=== PATIENT | male | born 1985 | race Caucasian/White ===

== ENCOUNTER 2016-09-04 07:58 | Emergency (ER) | payer MEDICAID ==
[~2016-09-04] VITALS: Ht 175.3 cm; Wt 77.2 kg
[~2016-09-04 07:58] MED LIST: LAMO100T5 PO
[2016-09-04] MEDS ORDERED: LORazepam 2 MG/ML, 1ML IVPush ONE (08:30)
[2016-09-04] MEDS ORDERED: OXYcodone/APAP 5/325MG TABLET PO ONE (08:30)
[2016-09-04] MEDS ORDERED: SODIUM CHLORIDE 0.9% 1,000ML IVBOLUS ONE (08:30)
[2016-09-04] MEDS ORDERED: OXYcodone/APAP 5/325MG TABLET ONE (08:39)
[2016-09-04] MEDS ORDERED: LORazepam 2 MG/ML, 1ML ONE (08:40)
[2016-09-04] MEDS ORDERED: MORPHINE SULFATE 4 MG/ML, 1ML ONE (09:47)
[2016-09-04] MEDS ORDERED: MORPHINE SULFATE 4 MG/ML, 1ML IVPush PRN (10:00)
[2016-09-04 10:21] VITALS: BP 116/63
== END 2016-09-04 10:24 | disposition home or self-care (01) ==
LOC: ED 10:00
DX: R56.9 Unspecified convulsions (principal); S39.012A Strain of muscle, fascia and tendon of lower back, initial encounter; S06.0X1A Concussion with loss of consciousness of 30 minutes or less, initial encounter; X58.XXXA Exposure to other specified factors, initial encounter; Y93.89 Activity, other specified; Y99.8 Other external cause status; Y92.89 Other specified places as the place of occurrence of the external cause
CPT/HCPCS: 70450; 72072; 96361; 96374; 96375; 99284; J2060; J7030

== ENCOUNTER 2016-11-05 22:30 | Inpatient (IN) | payer MEDICAID ==
[~2016-11-05] VITALS: Ht 170.2 cm; Wt 57.0 kg
[2016-11-05] MEDS ORDERED: SODIUM CHLORIDE FLUSH 10ML SYR IVF ONE (23:30)
[2016-11-06] MEDS ORDERED: SODIUM CHLORIDE FLUSH 10ML SYR IVF PRN
[2016-11-06] MEDS ORDERED: LORazepam 2 MG/ML, 1ML IVPush PRN ×2 (00:30→00:31)
[2016-11-06] MEDS ORDERED: HYDROcodone/APAP 5/325 TABLET PO PRN (00:30)
[2016-11-06] MEDS: morphine SULFATE 10 MG/ML, 1ML IVPush PRN ×2 (01:05→01:40)
[2016-11-06 01:18] VITALS: BP 148/86
[2016-11-06] MEDS: ENOXAPARIN 40 MG/0.4 ML SQ SCH (01:34)
[2016-11-06 07:49] VITALS: BP 145/75
[2016-11-06] MEDS ORDERED: LAMOTRIGINE 100 MG TABLET PO SCH (09:00)
[2016-11-06] MEDS ORDERED: ACETAMINOPHEN 500 MG TABLET ONE (09:03)
[2016-11-06] MEDS: ACETAMINOPHEN 500 MG TABLET PO PRN ×3 (09:07→20:31)
[2016-11-06] MEDS: FAMOTIDINE 20 MG TABLET PO SCH ×2 (10:09→20:31)
[2016-11-06 15:19] VITALS: BP 127/82
[2016-11-06 20:46] VITALS: BP 135/73
[2016-11-07 01:15] VITALS: BP 118/70
[2016-11-07] MEDS: ENOXAPARIN 40 MG/0.4 ML SQ SCH (01:17)
[2016-11-07 05:07] LABS: BLOOD UREA NITROGEN 12 mg/dL (7-18)
[2016-11-07 08:00] VITALS: BP 133/93
[2016-11-07] MEDS: FAMOTIDINE 20 MG TABLET PO SCH (09:00)
[2016-11-07 13:48] VITALS: BP 151/82
== END 2016-11-07 15:00 | disposition home or self-care (01) | DRG 101 ==
LOC: ED 23:59 → EDIP 11-06 00:29 → 4WST 11-06 00:58
PROVIDERS: ADMIT Internal Medicine; ATTEND Internal Medicine
DX: G40.409 Other generalized epilepsy and epileptic syndromes, not intractable, without status epilepticus (principal); K30 Functional dyspepsia; S01.81XA Laceration without foreign body of other part of head, initial encounter; X58.XXXA Exposure to other specified factors, initial encounter; Y93.89 Activity, other specified; Z72.820 Sleep deprivation; Z87.891 Personal history of nicotine dependence; Y92.89 Other specified places as the place of occurrence of the external cause; Y99.8 Other external cause status; R03.0 Elevated blood-pressure reading, without diagnosis of hypertension
CPT/HCPCS: 36415; 80048; 95951; 99285; J1650; J2270

== ENCOUNTER 2016-11-09 | Observation (INO) | payer MEDICAID ==
[~2016-11-09] VITALS: Ht 172.7 cm; Wt 75.4 kg
[2016-11-09] MEDS ORDERED: METH500T97 PO (00:14)
[2016-11-09] MEDS ORDERED: SODIUM CHLORIDE 0.9% 1,000ML IVBOLUS ONE (00:30)
[2016-11-09] MEDS ORDERED: SODIUM CHLORIDE FLUSH 10ML SYR IVF ONE (00:30)
[2016-11-09 00:56] LABS: BLOOD UREA NITROGEN 8 mg/dL (7-18)
[2016-11-09] MEDS ORDERED: KETOROLAC 30 MG/1 ML ONE (01:09)
[2016-11-09] MEDS ORDERED: KETOROLAC 30 MG/1 ML IVPush ONE (01:30)
[2016-11-09] MEDS ORDERED: SODIUM CHLORIDE 0.9% 1,000 ML IV SCH (01:52)
[2016-11-09] MEDS ORDERED: ENOXAPARIN 40 MG/0.4 ML SQ SCH (02:00)
[2016-11-09] MEDS ORDERED: BISACODYL 10 MG SUPP PR PRN (02:00)
[2016-11-09] MEDS ORDERED: DOCUSATE 100 MG CAPSULE PO PRN (02:00)
[2016-11-09] MEDS ORDERED: hydrALAzine 20 MG/ML, 1ML IVPush PRN (02:00)
[2016-11-09] MEDS ORDERED: KETOROLAC 30 MG/1 ML IVPush PRN (02:00)
[2016-11-09] MEDS ORDERED: POLYETHYLENE GLYCOL 17 GM PACKET PO PRN (02:00)
[2016-11-09] MEDS ORDERED: ACETAMINOPHEN 325 MG TABLET PO PRN (02:00)
[2016-11-09 03:44] VITALS: BP 126/77
[2016-11-09] MEDS ORDERED: METHOCARBAMOL 500 MG TABLET PO SCH (06:00)
[2016-11-09 07:09] VITALS: BP 118/80
[2016-11-09] MEDS ORDERED: LAMOTRIGINE 100 MG TABLET PO SCH (09:00)
[2016-11-09] MEDS ORDERED: CALCIUM CARBONATE 500 MG TAB.CHEW PO SCH (09:00)
[2016-11-10] MEDS ORDERED: LAMOTRIGINE 100 MG TABLET PO SCH (06:00)
== END 2016-11-09 09:10 | disposition left against medical advice (07) ==
LOC: ED 00:10 → EDIP 01:52 → 4WST 02:54
PROVIDERS: ADMIT Internal Medicine; ATTEND Internal Medicine
DX: G40.909 Epilepsy, unspecified, not intractable, without status epilepticus (principal); F12.10 Cannabis abuse, uncomplicated; F17.200 Nicotine dependence, unspecified, uncomplicated; G89.29 Other chronic pain; Z87.820 Personal history of traumatic brain injury
CPT/HCPCS: 36415; 72050; 80048; 82040; 85025; 93005; 96361; 96372; 96374; 99285; G0378; J1650; J1885; J7030

== ENCOUNTER 2017-01-24 11:20 | Emergency (ER) | payer MEDICAID ==
[~2017-01-24] VITALS: Ht 177.8 cm; Wt 73.5 kg
[~2017-01-24 11:20] MED LIST changes: +METH500T97 PO
[2017-01-24] MEDS ORDERED: LORazepam 2 MG/ML, 1ML IVPush ONE (12:00)
[2017-01-24] MEDS ORDERED: SODIUM CHLORIDE FLUSH 10ML SYR IVF ONE (12:00)
[2017-01-24] MEDS ORDERED: HYDROmorphone 1 MG/ML, 1ML IV ONE (12:00)
[2017-01-24] MEDS ORDERED: ONDANSETRON 2MG/ML, 2ML IVPush ONE (12:00)
[2017-01-24 12:18] LABS: HEMATOCRIT 47.7 % (39.2-51.8); HEMOGLOBIN 16.3 g/dL (13.7-18.0); WHITE BLOOD COUNT 8.8 x10^3/uL (3.4-10)
[2017-01-24 12:28] LABS: BLOOD UREA NITROGEN 9 mg/dL (7-18)
[2017-01-24] MEDS ORDERED: HYDROmorphone 1 MG/ML, 1ML ONE (12:39)
[2017-01-24] MEDS ORDERED: ONDANSETRON 2MG/ML, 2ML ONE (12:40)
[2017-01-24] MEDS ORDERED: LORazepam 2 MG/ML, 1ML ONE (12:40)
[2017-01-24 13:55] VITALS: BP 129/77
== END 2017-01-24 14:02 | disposition home or self-care (01) ==
LOC: ED 11:36
DX: G40.909 Epilepsy, unspecified, not intractable, without status epilepticus (principal)
CPT/HCPCS: 36415; 70450; 72072; 72125; 80048; 82040; 85025; 96374; 96375; 99285; J1170; J2060; J2405

== ENCOUNTER 2017-02-02 06:08 | Emergency (ER) | payer MEDICAID ==
[~2017-02-02] VITALS: Ht 175.3 cm; Wt 75.0 kg
[2017-02-02 06:17] VITALS: BP 142/80
[2017-02-02] MEDS ORDERED: SODIUM CHLORIDE FLUSH 10ML SYR IVF ONE (07:00)
[2017-02-02 07:05] LABS: HEMOGLOBIN 15.8 g/dL (13.7-18.0); WHITE BLOOD COUNT 7.5 x10^3/uL (3.4-10)
[2017-02-02] MEDS ORDERED: IBUPROFEN 200 MG TABLET ONE (07:14)
[2017-02-02 07:15] LABS: ASPARTATE AMINO TRANSFERASE 38 U/L (15-37); BLOOD UREA NITROGEN 15 mg/dL (7-18)
[2017-02-02] MEDS ORDERED: IBUPROFEN 200 MG TABLET PO ONE (07:30)
== END 2017-02-02 08:26 | disposition home or self-care (01) ==
LOC: ED 06:37
DX: G40.909 Epilepsy, unspecified, not intractable, without status epilepticus (principal)
CPT/HCPCS: 36415; 72072; 80053; 80175; 85025; 93005; 99285

== ENCOUNTER 2020-02-09 10:08 | Emergency (ER) | payer SELFPAY ==
[~2020-02-09] VITALS: Ht 175.3 cm; Wt 64.2 kg
[~2020-02-09 10:08] MED LIST changes: +DEPAKOTE
--- NOTE | 2020-02-09 10:18 | NUR ---
AMBULATORY TO ED ROOM W/ STEADY GAIT.
[2020-02-09] MEDS ORDERED: LAMO150T4 PO (10:23)
[2020-02-09 10:24] VITALS: BP 125/76
--- NOTE | 2020-02-09 10:53 | NUR ---
XR AT BS
[2020-02-09] MEDS ORDERED: HYDROcodone/APAP 5/325 TABLET ONE (10:59)
[2020-02-09] MEDS ORDERED: ASPIRIN 81 MG TABLET CHEW ONE (10:59)
[2020-02-09] MEDS ORDERED: ASPIRIN 81 MG TABLET CHEW PO ONE (11:00)
[2020-02-09] MEDS ORDERED: HYDROcodone/APAP 5/325 TABLET PO ONE (11:00)
--- NOTE | 2020-02-09 11:02 | NUR ---
ASA AND NORCO GIVEN PER EMAR
[2020-02-09 11:13] LABS: BASOPHILS # (AUTO) 0.04 x10^3/uL (0-0.1); BASOPHILS % (AUTO) 1 % (0-1); EOSINOPHILS % (AUTO) 1 % (1-7); LYMPHOCYTES # (AUTO) 1.95 x10^3/uL (1-3.4); LYMPHOCYTES % (AUTO) 29 % (22-44); MD NO; MEAN CORPUSCULAR HEMOGLOBIN 32.1 pg (27.5-34.5); MEAN CORPUSCULAR HGB CONC 33.5 g/dL (33.2-36.2); MEAN CORPUSCULAR VOLUME 95.7 fL (81-97); MEAN PLATELET VOLUME 8.1 fL (7.4-10.4); MONOCYTES # (AUTO) 0.51 x10^3/uL (0.2-0.8); MONOCYTES % (AUTO) 8 % (2-9); NEUTROPHILS # (AUTO) 4.07 x10^3/uL (1.8-6.8); NEUTROPHILS % (AUTO) 61 % (42-75); PLATELET COUNT 210 x10^3/uL (130-400); RED BLOOD COUNT 4.75 x10^6/uL (4.38-5.82); RED CELL DISTRIBUTION WIDTH 12.8 % (9.4-14.8)
[2020-02-09 11:19] LABS: ALANINE AMINOTRANSFERASE 20 U/L (12-78); ALBUMIN 3.7 g/dL (3.4-5.0); ANION GAP 7 mmol/L (5-15); CALCIUM 8.6 mg/dL (8.5-10.1); CHLORIDE 109 mmol/L (98-107); CREATININE 1.12 mg/dL (0.7-1.3)
[2020-02-09 11:24] LABS: ALKALINE PHOSPHATASE 79 U/L (45-117); TOTAL PROTEIN 6.9 g/dL (6.4-8.2); TROPONIN I < 0.015 ng/mL (0.000-0.045)
[2020-02-09 11:58] LABS: BILIRUBIN,TOTAL 0.6 mg/dL (0.2-1.0)
[2020-02-09] MEDS ORDERED: VALPROATE SODIUM 500 MG in SODIUM CHLORIDE 0.9% 100 ML IV ONE (12:15)
--- NOTE | 2020-02-09 12:47 | NUR ---
AMBULATORY TO & FROM [facility] W/OUT INCIDENT; GAIT STEADY. VALPROATE SODIUM HUNG; INFUSING AT 105ML/HR VIA PUMP; IV SITE PATENT. PT REPORTS SLIGHT IMPROVEMENT IN [place]. PT'S GIRLFRIEND IN ROOM.
[2020-02-09] MEDS ORDERED: MORPHINE SULFATE 4 MG/ML, 1ML IVPush PRN (13:00)
[2020-02-09] MEDS ORDERED: MORPHINE SULFATE 4 MG/ML, 1ML ONE (14:34)
--- NOTE | 2020-02-09 14:50 | NUR ---
MORPHINE GIVEN PER EMAR. PT'S GIRLFRIEND IN ROOM; WILL TRANSPORT PT HOME.
== END 2020-02-09 14:53 | disposition home or self-care (01) ==
LOC: ED 10:33
DX: G40.409 Other generalized epilepsy and epileptic syndromes, not intractable, without status epilepticus (principal); R55 Syncope and collapse; I51.7 Cardiomegaly; R94.31 Abnormal electrocardiogram [ECG] [EKG]; R07.9 Chest pain, unspecified
CPT/HCPCS: 36415; 71045; 80053; 80164; 80175; 84484; 85025; 93005; 96374; 96375; 99285; J2270

== ENCOUNTER 2020-08-08 08:49 | Emergency (ER) | payer BC ==
[~2020-08-08] VITALS: Ht 177.8 cm; Wt 62.4 kg
[~2020-08-08 08:49] MED LIST changes: +LAMO150T4 PO
[2020-08-08] MEDS ORDERED: MAGN400T36 PO (08:58)
--- NOTE | 2020-08-08 09:21 | NUR ---
PT TO ROOM 26 W/ C/O SZ LIKE ACTIVITY THIS AM. PT STATES HX SZ. LAST SZ 2 MONTHS AGO. PT STATES HE FELL TO THE FLOOR AND HIT HIS HEAD. HEMATOMA NOTED TO R SIDE FOREHEAD. PT DENIES BLOOD THINNERS. NEURO INTACT. PT AOX4. PT CURRENTLY ON LAMICTAL. STATES NEUROLOGIST IS DR. WILLIS. PT RESTING ON GURNEY. TEARFUL IN BED. MONITORS APPLIED. EKG COMPLETED. SZ PRECUATIONS APPLIED. NADN. VSS. WARM BLANKET PROVIDED. FAMILY AT BEDSIDE.
[2020-08-08] MEDS ORDERED: MECLIZINE CHEWABLE 25 MG TAB ONE (09:47)
[2020-08-08] MEDS ORDERED: LORazepam 2 MG/ML, 1ML IV ONE (09:52)
[2020-08-08 10:00] LABS: BASOPHILS % (AUTO) 1 % (0-1); EOSINOPHILS % (AUTO) 0 % (1-7); LYMPHOCYTES % (AUTO) 20 % (22-44); MEAN PLATELET VOLUME 8.5 fL (7.4-10.4); MONOCYTES % (AUTO) 7 % (2-9); NEUTROPHILS % (AUTO) 72 % (42-75); PLATELET COUNT 243 x10^3/uL (130-400); RED BLOOD COUNT 5.22 x10^6/uL (4.38-5.82); RED CELL DISTRIBUTION WIDTH 12.7 % (9.4-14.8)
[2020-08-08 10:03] LABS: MD NO
[2020-08-08 10:04] LABS: CHLORIDE 106 mmol/L (98-107)
[2020-08-08] MEDS ORDERED: LORazepam 2 MG/ML, 1ML ONE (10:08)
[2020-08-08 10:09] LABS: ALBUMIN 4.5 g/dL (3.4-5.0); ANION GAP 10 mmol/L (5-15); CALCIUM 9.3 mg/dL (8.5-10.1); CREATININE 1.17 mg/dL (0.7-1.3)
[2020-08-08] MEDS ORDERED: MECLIZINE CHEWABLE 25 MG TAB PO ONE (10:30)
--- NOTE | 2020-08-08 10:48 | NUR ---
PT RESTING ON GURNEY. NADN. TORRES.
[2020-08-08] MEDS ORDERED: PROCHLORPERAZINE 5 MG/ML, 2ML IVPush ONE (11:00)
[2020-08-08] MEDS ORDERED: KETOROLAC 30 MG/1 ML IVPush ONE (11:00)
[2020-08-08] MEDS ORDERED: DIPHENHYDRAMINE 50 MG/ML, 1ML IVPush ONE (11:00)
[2020-08-08] MEDS ORDERED: PROCHLORPERAZINE 5 MG/ML, 2ML ONE (11:03)
[2020-08-08] MEDS ORDERED: DIPHENHYDRAMINE 50 MG/ML, 1ML ONE (11:03)
[2020-08-08] MEDS ORDERED: KETOROLAC 30 MG/1 ML ONE (11:03)
[2020-08-08 12:29] VITALS: BP 104/71
== END 2020-08-08 12:32 | disposition home or self-care (01) ==
LOC: ED 11:06
DX: S00.83XA Contusion of other part of head, initial encounter (principal); S00.81XA Abrasion of other part of head, initial encounter; S06.9X1A Unspecified intracranial injury with loss of consciousness of 30 minutes or less, initial encounter; G40.909 Epilepsy, unspecified, not intractable, without status epilepticus; F17.210 Nicotine dependence, cigarettes, uncomplicated; X58.XXXA Exposure to other specified factors, initial encounter; Y93.89 Activity, other specified; Y92.89 Other specified places as the place of occurrence of the external cause; Y99.8 Other external cause status
CPT/HCPCS: 36415; 70450; 80048; 82040; 85025; 93005; 96374; 96375; 99285; J0780; J1200; J1885; J2060

== ENCOUNTER 2020-09-24 10:57 | Emergency (ER) | payer BC ==
[~2020-09-24] VITALS: Ht 175.3 cm; Wt 70.0 kg
[~2020-09-24 10:57] MED LIST changes: +MAGN400T36 PO
--- NOTE | 2020-09-24 11:12 | NUR ---
PA AT BS
--- NOTE | 2020-09-24 11:15 | NUR ---
PT UNSTEADY ON FEET, TRANSFERED FROM WHEELCHAIR TO BED. PT CHANGED INTO GOWN, MONITORS IN PLACE. CALL LIGHT WITHIN REACH
[2020-09-24] MEDS ORDERED: LORazepam 2 MG/ML, 1ML ONE (11:22)
--- NOTE | 2020-09-24 11:25 | NUR ---
PT TO CT
[2020-09-24] MEDS ORDERED: SODIUM CHLORIDE 0.9% 1,000ML IVBOLUS ONE (11:30)
[2020-09-24] MEDS ORDERED: LORazepam 2 MG/ML, 1ML IVPush ONE (11:30)
[2020-09-24] MEDS ORDERED: SODIUM CHLORIDE FLUSH 10ML SYR IVF ONE (11:30)
--- NOTE | 2020-09-24 11:43 | NUR ---
PT BACK FROM CT, HOOKED UP TO MONITORS, CALL LIGHT WITHIN REACH
[2020-09-24 12:00] LABS: BASOPHILS % (AUTO) 1 % (0-1); EOSINOPHILS % (AUTO) 1 % (1-7); LYMPHOCYTES % (AUTO) 23 % (22-44); MEAN CORPUSCULAR HEMOGLOBIN 32.8 pg (27.5-34.5); MEAN CORPUSCULAR HGB CONC 35.2 g/dL (33.2-36.2); MEAN PLATELET VOLUME 7.9 fL (7.4-10.4); MONOCYTES % (AUTO) 8 % (2-9); NEUTROPHILS % (AUTO) 68 % (42-75); PLATELET COUNT 231 x10^3/uL (130-400); RED BLOOD COUNT 5.09 x10^6/uL (4.38-5.82); RED CELL DISTRIBUTION WIDTH 12.8 % (9.4-14.8)
--- NOTE | 2020-09-24 12:04 | NUR ---
PT SITTING ON GURNEY, MONITORS IN PLACE. SZ PRECAUTIONS IN PLACE. FRIEND AT BS. CALL LIGHT WITHIN REACH. NO NEEDS AT THIS TIME
[2020-09-24 12:09] LABS: ALBUMIN 4.3 g/dL (3.4-5.0); ANION GAP 6 mmol/L (5-15); CHLORIDE 110 mmol/L (98-107)
[2020-09-24 12:11] LABS: MD NO
[2020-09-24 12:12] LABS: ALANINE AMINOTRANSFERASE 15 U/L (12-78); ALKALINE PHOSPHATASE 83 U/L (45-117); BILIRUBIN,TOTAL 0.9 mg/dL (0.2-1.0); CREATININE 1.06 mg/dL (0.7-1.3); TOTAL PROTEIN 7.6 g/dL (6.4-8.2)
[2020-09-24 12:29] LABS: AMPHETAMINE SCREEN, URINE Negative (Negative); BARBITURATE SCREEN, URINE Negative (Negative); BENZODIAZEPINE SCREEN, URINE Negative (Negative); CANNABINOID SCREEN, URINE Positive (Negative); COCAINE SCREEN, URINE Negative (Negative); METHADONE SCREEN, URINE Negative (Negative); OPIATE SCREEN, URINE Negative (Negative)
[2020-09-24] MEDS ORDERED: KETOROLAC 30 MG/1 ML ONE (12:56)
[2020-09-24] MEDS ORDERED: HYDROcodone/APAP 5/325 TABLET ONE (12:57)
[2020-09-24] MEDS ORDERED: HYDROcodone/APAP 5/325 TABLET PO ONE (13:00)
[2020-09-24] MEDS ORDERED: KETOROLAC 30 MG/1 ML IVPush ONE (13:00)
[2020-09-24 13:15] VITALS: BP 121/74
--- NOTE | 2020-09-24 13:16 | NUR ---
PT SITTING ON [place], FRIEND AT . PT STATES HE FEELS "TIRED." NADN/VSS. CALL LIGHT WITHIN REACH. NO NEEDS AT THIS TIME
== END 2020-09-24 14:05 | disposition home or self-care (01) ==
LOC: ED 11:23
DX: S00.83XA Contusion of other part of head, initial encounter (principal); S00.11XA Contusion of right eyelid and periocular area, initial encounter; R00.0 Tachycardia, unspecified; R56.9 Unspecified convulsions; X58.XXXA Exposure to other specified factors, initial encounter; Y93.89 Activity, other specified; Y92.89 Other specified places as the place of occurrence of the external cause; Y99.8 Other external cause status
CPT/HCPCS: 36415; 70486; 80053; 80307; 82962; 85025; 93005; 96361; 96374; 96375; 99285; J1885; J2060; J7030

== ENCOUNTER 2020-11-25 12:38 | Outpatient (CLI) | payer BC | END 2020-11-25 23:59 | disposition home or self-care (01) | LOC: CARD 12:38 | PROVIDERS: ATTEND Psychiatry & Neurology Neurology | DX: G40.909 Epilepsy, unspecified, not intractable, without status epilepticus (principal) | CPT/HCPCS: 95819 ==

== ENCOUNTER 2020-12-10 23:21 | Emergency (ER) | payer BC ==
[~2020-12-10] VITALS: Ht 177.8 cm; Wt 63.0 kg
[2020-12-10 23:31] VITALS: BP 129/98
--- NOTE | 2020-12-11 00:17 | NUR ---
NOT IN LOBBY
--- NOTE | 2020-12-11 00:35 | NUR ---
NOT IN LOBBY
--- NOTE | 2020-12-11 01:32 | NUR ---
called in the lobby. no answer.
== END 2020-12-11 01:34 | disposition left against medical advice (07) ==
LOC: ED 23:51
DX: R51.9 Headache, unspecified (principal); R56.9 Unspecified convulsions; Z53.21 Procedure and treatment not carried out due to patient leaving prior to being seen by health care provider
CPT/HCPCS: 93005